=== PATIENT | male | born 1995 | race Hispanic/Latino ===

== ENCOUNTER 2017-10-13 21:28 | Emergency (ER) | payer SELFPAY ==
[~2017-10-13 21:28] MED LIST: ISOVUE-370 76%-LOCM 1 ML ONE
[2017-10-13 22:23] LABS: #Eosinphils 0.1 thou/uL (0.0-0.7); #Lymphocytes 0.5 thou/uL (1.20-3.40); #Monocytes 0.6 thou/uL (0.11-0.59); #Neutrophils 8.7 thou/uL (1.40-6.50); %Basophils 0.1 % (0.0-1.0); %Eosinophils 0.6 % (0.0-10.0); %Lymphocytes 5.2 % (21.0-51.0); %Monocytes 6.2 % (0.0-10.0); Hematocrit 49.1 % (42.0-52.0); Red Blood Cell (RBC) Count 5.51 mill/uL (4.70-6.10); White Blood Cell (WBC) Count 9.9 thou/uL (4.8-10.8)
[2017-10-13 22:44] LABS: ALT (SGPT) 11 U/L (8-55); AST (SGOT) 17 U/L (5-34); Alkaline Phosphatase 78 U/L (40-150); Anion Gap 14 mmol/L (10-20); BUN (Urea Nitrogen) 10 mg/dL (8.9-20.6); Bilirubin, Total 0.7 mg/dL (0.2-1.2); Calc. Creatinine Clearance 0 mL/min (70-130); Calcium 9.2 mg/dL (7.8-10.44); Carbon Dioxide 25 mmol/L (22-29); Chloride 105 mmol/L (98-107); Estimated GFR-MDRD Greater than 90; Globulin 2.7 g/dL (2.4-3.5); Protein, Total 7.1 g/dL (6.0-8.3)
[2017-10-13 22:47] LABS: Troponin I Less than 0.010 ng/mL (< 0.028)
[2017-10-13] MEDS ORDERED: Morphine 4 MG/ML VIAL ONE (23:05)
[2017-10-13] MEDS ORDERED: Ondansetron HCl/PF 4 MG/2 ML Vial ONE (23:05)
--- NOTE | 2017-10-13 23:22 | RAD ---
ABDOMINAL SERIES WITH UPRIGHT CHEST AND TWO VIEW ABDOMEN: 10/13/17 HISTORY: Abdominal pain. The lung le are clear. Two views of abdomen show unremarkable bowel gas pattern Stool and gas see n throughout the colon. No free air of mass effect seen. IMPRESSION: Unremarkable bowel gas pattern. POS: [facility]
--- NOTE | 2017-10-13 23:34 | CT ---
CT ABDOMEN AND PELVIS WITH CONTRAST: 10/13/17 Multiple axial tomograms obtained through the abdomen and pelvis with IV enhancement. HISTORY: Abdominal pain. Epigastric pain radiating to back. FINDINGS: The lung bases are clear. Liver, spleen, and pancreas are unremarkable. Adrenal glands and kidneys are unremarkable. No hydrone phrosis seen. The stomach is distended and filled with ingested material. The duodenum appears unremarkable. Mild fluid filled distention of mid and distal small bowel loops is nonspecific. This could represent mild enteritis. No small bowel dilatation or evidence of obstruction. Appendix appears normal. Colon is unremarkable. No adenopathy identified. IMPRESSION: Nonspecific fluid filled distention of small bowel loops. Distended stomach from ingested material. N o acute abnormality identified. POS: [facility]
[2017-10-13] MEDS ORDERED: Mag-Al 1200 mg/1200 mg/30 ML UDCUP ONE (23:41)
[2017-10-13] MEDS ORDERED: Lidocaine Viscous Sol 2% 15 ml UD Cup ONE (23:41)
== END 2017-10-14 00:40 | disposition home or self-care (01) ==
LOC: ERS 21:28
DX: R10.13 Epigastric pain (principal); F17.210 Nicotine dependence, cigarettes, uncomplicated
CPT/HCPCS: 74022; 74177; 80053; 82553; 84484; 85025; 93005; 96361; 96374; 96375; J2270; J2405